=== PATIENT | female | born 1985 | race African-American/Black ===

== ENCOUNTER 2024-06-30 00:22 | Emergency (ER) | payer OTHER ==
[~2024-06-30] VITALS: Ht 165.1 cm; Wt 81.6 kg
[2024-06-30 00:44] VITALS: PULSE 82; RESP 17; TEMP 98.5; O2SAT 100
== END 2024-06-30 00:56 | disposition home or self-care (01) ==
LOC: ER 00:40
DX: R13.10 Dysphagia, unspecified (principal); I10 Essential (primary) hypertension; Z98.84 Bariatric surgery status
CPT/HCPCS: 99282